=== PATIENT | male | born 1945 | race Hispanic/Latino ===

== ENCOUNTER 2024-09-15 16:47 | Emergency (ER) | payer OTHER ==
[~2024-09-15] VITALS: Ht 182.9 cm; Wt 84.4 kg
[~2024-09-15 16:47] MED LIST: ATEN100T PO; CALCIPOTRIENE TP; CHOL400T4 PO; FLUO15CR2 TP; HUM10VIA6 SQ; HYDR-4060 PO; HYDR-4457 PO; LISI20TA24 PO; METR-172 PO; SULF1TAB42 PO; triamcinolone 0.1% TP
[2024-09-15 16:50] VITALS: TEMP 97.9
[2024-09-15 17:43] LABS: BASOPHILS # (AUTO) 0.04 K/uL (0.00-0.20); BASOPHILS % (AUTO) 0.6 % (0.0-5.0); EOSINOPHILS # (AUTO) 0.25 K/uL (0.00-0.70); EOSINOPHILS % (AUTO) 3.5 % (0.0-8.0); HEMATOCRIT 40.1 % (42-54); IMMATURE GRANULOCYTE ABSOLUTE 0.01 K/uL (0-1); LYMPHOCYTES # (AUTO) 1.5 K/uL (1.0-4.8); LYMPHOCYTES % (AUTO) 21.3 % (21.0-51.0); MEAN CORPUSCULAR HEMOGLOBIN 28.4 pg (27.0-33.0); MEAN CORPUSCULAR HGB CONC 33.7 g/dL (32.0-36.0); MEAN CORPUSCULAR VOLUME 84.4 fL (79-99); MONOCYTES # (AUTO) 0.5 K/uL (0.1-1.0); MONOCYTES % (AUTO) 7.5 % (3.0-13.0); NEUTROPHILS # (AUTO) 4.8 K/uL (1.8-7.7); PLATELET COUNT (AUTO) 195 K/uL (130-400); RED BLOOD CELL COUNT(AUTO) 4.75 MIL/uL (4.50-6.20); RED CELL DISTRIBUTION WIDTH 14.9 % (11.0-15.5); WHITE BLOOD COUNT (AUTO) 7.2 K/uL (4.8-10.8)
[2024-09-15 17:51] LABS: CREATININE 0.9 mg/dL (0.5-1.3); POTASSIUM 4.4 mmol/L (3.5-5.1)
--- NOTE | 2024-09-15 18:12 | HMCIMG ---
ULTRASOUND VENOUS DOPPLER RIGHT LOWER EXTREMITY INDICATION: Pain and swelling. TECHNIQUE: Routine grayscale and color Doppler ultrasound of the right lower extremity veins performed. COMPARISON: None. FINDINGS: The demonstrated veins of the right lower extremity including the common femoral vein, femoral vein, and popliteal vein are associated with normal compressibility, augmentation, and flow. Normal respiratory variation was identified. No evidence for echogenic intraluminal thrombus. IMPRESSION: No evidence for deep venous thrombosis.
[2024-09-15] MEDS ORDERED: SULF1TAB42 PO (18:29)
--- NOTE | 2024-09-15 18:30 | ERN ---
ED Note History of Present Illness Stated Complaint: RLE SWELLING Chief Complaint: Lower Extremity Pain/Injury Time Seen by MD: 17:10 Time Seen by Midlevel: 17:15 Dictation: 79-year-old [facility] to the right lower extrem ity. Patient states he has been having swelling for the last week. Denies having any trauma. However states when he has done his rehab exercises feels like he might have overdone it Allergies: Coded Allergies: amoxicillin (Unverified Allergy, Unknown, 02/02/17) cephalexin (Unverified Allergy, Unknown, 01/12/17) doxycycline (Unverified Allergy, Unknown, 02/02/17) latex (Unverified Allergy, Unknown, RASH, ITCHING, 01/12/17) metformin (Unverified Allergy, Unknown, 02/02/17) Home Meds Active Scripts Sulfamethoxazole/Trimethoprim (Bactrim Ds Tablet) 800 Mg-160 Mg Tablet, 1 TAB PO BID for 10 Days, #20 TAB 0 Refills Prov:CLEMENT BENAVIDES NP 09/15/24 Metronidazole (Metronidazole) 500 Mg Tablet, 500 MG PO BID, #15 TAB Prov:ALBIN DRAKE MD 02/03/17 Sulfamethoxazole/Trimethoprim (Bactrim Ds Tablet) 1 Each Tablet, 1 TAB PO BID, #14 TAB Prov:ALBIN DRAKE MD 02/03/17 Hydrocodone/Acetaminophen ([place] 5-325 Tablet) 1 Each Tablet, 1-2 EACH PO Q6H for pain, #90 TAB Prov:ALBIN DRAKE MD 01/15/17 Reported Medications [calcipotriene 0.05%] No Conflict Check, 1 APPL TP BID 02/02/17 Fluocinonide/Emollient Base (Fluocinonide-E 0.05% Cream) 15 Gm Cream..g., 7 APPL TP AM 02/02/17 [triamcinolone 0.1%] No Conflict Check, 1 APPL TP AM 02/02/17 Cholecalciferol (Vitamin D3) (Vitamin D3) 400 Unit Tablet, 400 UNIT PO BID, TAB 02/02/17 Hydrocodone/Acetaminophen (Hydrocodon-Acetaminophen 5-325) 1 Each Tablet, 2 EACH PO [id number] PRN for PAIN LEVEL 5 TO 10, TAB 02/02/17 Hum Insulin NPH/Reg Insulin Hm (Novolin 70-30 100 Unit/ml Vial) 100 Unit/1 Ml Vial, 17 UNITS SQ HS, VIAL 01/12/17 Hum Insulin NPH/Reg Insulin Hm (Novolin 70-30 100 Unit/ml Vial) 100 Unit/1 Ml Vial, 36 UNITS SQ DAILY, VIAL 01/12/17 Lisinopril (Lisinopril) 20 Mg Tablet, 20 MG PO DAILY, TAB 01/12/17 Atenolol (Atenolol) 100 Mg Tablet, 100 MG PO DAILY, TAB 01/12/17 Past Medical History Past Medical History: DVT, Hypertension Surgical History: Other Surgical History Other: RT KNEE Review of System Dictation Constitutional: Negative for fever,chills, and weight loss Eyes: Negative for injury, pain,redness, and discharge ENT: Negative for injury,pain or swelling Cardiovascular: Negative for chest pain, palpitations, and edema Respiratory: Negative for shortness of breath, cough, and wheezing, Abdomen/GI: Negative for abdominal pain, nausea, vomiting, diarrhea, and constipation Back: Negative for injury and pain : Negative for injury, bleeding and discharge MS/Extremity: Negative for injury and deformity, right lower leg swelling Skin: Negative for rash, and discoloration Neuro: Negative for headache, weakness, numbness, tingling, and seizure Psych: Negative for suicide ideation, homicidal ideation, and hallucinations Review of Systems: was completed Initial Vital Sign VS Vital Signs Date Time Temp Pulse Resp B/P (MAP) Pulse Ox O2 Delivery O2 Flow Rate FiO2 09/15/24 16:50 97.9 73 16 130/79 95 Room Air 0 09/15/24 18:39 21 Physical Exam Dictation General: awake, alert, NAD Head/Face: Normocephalic, atraumatic Eyes: PERRL, EOMI, vision at baseline ENT: oral cavity clear, TMs clear, no signs of infection Neck: Trachea midline, supple, no nuchal rigidity Cardiovascular: RRR, normal S1/S2, No MRGs, no JVD Respiratory: CTAB, no respiratory distress, No rales or wheezes Abdomen: Soft, non-tender, non-distended, normal bowel sounds, no guarding or rebound. Skin: Warm, dry, normal turgor, no rash MS/Extremity: Pulses equal, no cyanosis, neurovascular intact, FROM, right lower leg swelling, mild erythema, mildly warm to touch. Neuro: COAx4, GCS 15, strength 5/5, CN 2-12 intact, normal cerebellar exam, normal gait, Psych: Normal behavior, mood, and affect normal Results (Laboratory/Radiology) Laboratory/Radiology Laboratory Tests Test 09/15/24 17:33 White Blood Count 7.2 K/uL (4.8-10.8) Red Blood Count 4.75 MIL/uL (4.50-6.20) Hemoglobin 13.5 g/dL (14.0-18.0) L Hematocrit 40.1 % (42-54) L Mean Corpuscular Volume 84.4 fL (79-99) Mean Corpuscular Hemoglobin 28.4 pg (27.0-33.0) Mean Corpuscular Hemoglobin Concent 33.7 g/dL (32.0-36.0) Red Cell Distribution Width 14.9 % (11.0-15.5) Platelet Count 195 K/uL (130-400) Mean Platelet Volume 11.7 fL (7.5-10.5) H Immature Granulocyte % (Auto) 0.1 % (0-1) Neutrophils (%) (Auto) 67.0 % (40.0-77.0) Lymphocytes (%) (Auto) 21.3 % (21.0-51.0) Monocytes (%) (Auto) 7.5 % (3.0-13.0) Eosinophils (%) (Auto) 3.5 % (0.0-8.0) Basophils (%) (Auto) 0.6 % (0.0-5.0) Neutrophils # (Auto) 4.8 K/uL (1.8-7.7) Lymphocytes # (Auto) 1.5 K/uL (1.0-4.8) Monocytes # (Auto) 0.5 K/uL (0.1-1.0) Eosinophils # (Auto) 0.25 K/uL (0.00-0.70) Basophils # (Auto) 0.04 K/uL (0.00-0.20) Absolute Immature Granulocyte (auto 0.01 K/uL (0-1) Nucleated Red Blood Cells 0.0 % (0.0-0.19) Sodium Level 140 mmol/L (136-145) Potassium Level 4.4 mmol/L (3.5-5.1) Chloride Level 103 mmol/L (101-111) Carbon Dioxide Level 31 mmol/L (21-32) Blood Urea Nitrogen 18 mg/dL (7-18) Creatinine 0.9 mg/dL (0.5-1.3) Glomerular Filtration Rate Calc 88 mL/min (>90) Random Glucose 86 mg/dL (70-105) Lactic Acid Level 1.0 mmol/L (0.8-2.5) Total Calcium 9.4 mg/dL (8.5-10.1) Labs Reviewed?: Yes ED Course ED Course Orders Procedure Category Date Status Time Cbc With Differential LAB 09/15/24 Complete 17:20 Basic Metabolic Panel LAB 09/15/24 Complete 17:20 Lactic Acid LAB 09/15/24 Complete 17:20 Us Venous Doppler US 09/15/24 Resulted Unilateral 17:20 Vital Signs Date Time Temp Pulse Resp B/P (MAP) Pulse Ox O2 Delivery O2 Flow Rate FiO2 09/15/24 18:39 79 17 144/85 99 Room Air* 0 21 09/15/24 16:50 97.9 73 16 130/79 95 Room Air 0 Medical Decision Making MDM MDM: 79-year-old male sent from the [place] to rule out a clot to the right lower extremity. Patient states he has been having swelling for the last week. Denies having any trauma. However states when he has done his rehab exercises feels like he might have overdone it. Blood work unremarkable. No leukocytosis, no anemia, no thrombocytopenia. Chemistry shows no electrolyte abnormality. Lactic is normal. Preliminary report of ultrasound shows no DVT. Based on my clinical findings and we will discharge patient with antibiotics treat this is cellulitis. Differential diagnosis: Cellulitis, DVT Rationale: Tests considered and ordered secondary to shared decision making include: Previous outside records reviewed: Old ER visits. Risk of complication and/or morbidity or mortality of patient management: None Medications-Per medication reconciliation Need for hospitalization: Patient does not meet criteria for hospitalization. Need for emergency major/minor surgery: No There are no social concerns with this patient. Prescription drug management Prescriptions will include symptomatic care Patient's prior external medical records from other ER visits were reviewed by me as indicated. Prior testing and results from previous visits were reviewed. Prior tests were taken into account with medical decision making and resource utilization, independent historian/historians were used to obtain complete medical history. I independently interpreted the test that were performed, results were reviewed by me and considered findings on radiology if ordered. Medical management and examination interpretation discussions were had by me with other qualified healthcare professionals as indicated for the patient's care. DX & DISP Disposition: Discharge Departure Impression: Primary Impression: Cellulitis Condition: Stable Scripts Sulfamethoxazole/Trimethoprim (Bactrim Ds Tablet) 800 Mg-160 Mg Tablet 1 TAB PO BID for 10 Days, #20 TAB 0 Refills Prov: CLEMENT BENAVIDES NP 09/15/24 Additional Instructions: Take antibiotics as prescribed. Follow up with your PCP in 1-2 days. Return to the hospital if you have worsening symptoms. Referrals: MINERVA JACKSON (PCP) Time of Disposition: 18:29 I have reviewed the case, and I agree with, Diagnosis and Plan I performed a substantive portion of the visit. I have reviewed and personally made and approve the management plan that is documented in the notes by myself with CAESAR/resident. I acknowledged full responsibility for the patient's management plan. CLEMENT BENAVIDES NP Sep 15, 2024 18:[address] DO Sep 18, 2024 04:02
[2024-09-15 18:39] VITALS: BP 144/85; PULSE 79; RESP 17; O2SAT 99
== END 2024-09-15 18:58 | disposition home or self-care (01) ==
LOC: EDH 16:47
DX: L03.115 Cellulitis of right lower limb (principal); M79.661 Pain in right lower leg; I10 Essential (primary) hypertension; Z79.899 Other long term (current) drug therapy; Z86.718 Personal history of other venous thrombosis and embolism; Z88.0 Allergy status to penicillin; Z88.1 Allergy status to other antibiotic agents
CPT/HCPCS: 36415; 80048; 83605; 85025; 93971; 99284

== ENCOUNTER 2024-09-27 09:40 | Emergency (ER) | payer OTHER, MEDICARE ==
[~2024-09-27] VITALS: Ht 182.9 cm; Wt 82.6 kg
--- NOTE | 2024-09-27 09:55 | ERN ---
General Chief Complaint: Lower Extremity Pain/Injury Stated Complaint: FOOT SWELLING Time Seen by : 09:44 Source: patient History of Present Illness Initial Comments Patient is a 79-year-old male coming in complaining of right lower extremity swelling and discomfort. Per patient he has been evaluated in the past. He states that last month on the he was evaluated here with the ultrasound laboratory workup he was diagnosed with a cellulitis. Antibiotics we provided but he states he could not take the antibiotics and believes he might be allergic to them. Patient [facility] given he states he could not finish him because it is getting started hurting. Allergies: Coded Allergies: amoxicillin (Unverified Allergy, Unknown, 02/02/17) cephalexin (Unverified Allergy, Unknown, 01/12/17) doxycycline (Unverified Allergy, Unknown, 02/02/17) latex (Unverified Allergy, Unknown, RASH, ITCHING, 01/12/17) metformin (Unverified Allergy, Unknown, 02/02/17) Home Meds Active Scripts Sulfamethoxazole/Trimethoprim (Bactrim Ds Tablet) 800 Mg-160 Mg Tablet, 1 TAB PO BID for 10 Days, #20 TAB 0 Refills Prov:CLEMENT BENAVIDES OPENING MACHINE CLEANER 09/15/24 Metronidazole (Metronidazole) 500 Mg Tablet, 500 MG PO BID, #15 TAB Prov:ALBIN DRAKE MD 02/03/17 Sulfamethoxazole/Trimethoprim (Bactrim Ds Tablet) 1 Each Tablet, 1 TAB PO BID, #14 TAB Prov:ALBIN DRAKE MD 02/03/17 Hydrocodone/Acetaminophen ([place] 5-325 Tablet) 1 Each Tablet, 1-2 EACH PO Q6H for pain, #90 TAB Prov:ALBIN DRAKE MD 01/15/17 Reported Medications [calcipotriene 0.05%] No Conflict Check, 1 APPL TP BID 02/02/17 Fluocinonide/Emollient Base (Fluocinonide-E 0.05% Cream) 15 Gm Cream..g., 7 APPL TP AM 02/02/17 [triamcinolone 0.1%] No Conflict Check, 1 APPL TP AM 02/02/17 Cholecalciferol (Vitamin D3) (Vitamin D3) 400 Unit Tablet, 400 UNIT PO BID, TAB 02/02/17 Hydrocodone/Acetaminophen (Hydrocodon-Acetaminophen 5-325) 1 Each Tablet, 2 EACH PO [id number] PRN for PAIN LEVEL 5 TO 10, TAB 02/02/17 Hum Insulin NPH/Reg Insulin Hm (Novolin 70-30 100 Unit/ml Vial) 100 Unit/1 Ml Vial, 17 UNITS SQ HS, VIAL 01/12/17 Hum Insulin NPH/Reg Insulin Hm (Novolin 70-30 100 Unit/ml Vial) 100 Unit/1 Ml Vial, 36 UNITS SQ DAILY, VIAL 01/12/17 Lisinopril (Lisinopril) 20 Mg Tablet, 20 MG PO DAILY, TAB 01/12/17 Atenolol (Atenolol) 100 Mg Tablet, 100 MG PO DAILY, TAB 01/12/17 Past Medical History Past Medical History: Diabetes-Type II, Hypertension Medical History Other: PSORIASIS Past Surgical History: Other Surgical History Other: RT KNEE, CATARACTS SX ROS Dictation CONSTITUTIONAL: No chills, no fever, no weakness, no diaphoresis, no malaise. HEAD/FACE: No signs of trauma. EENT: No eye pain, no blurred vision, no tearing, no double vision, no ear pain, no ear discharge, no nose pain, no nasal congestion, no throat pain, no throat swelling, no mouth pain. RESPIRATORY: No cough, no orthopnea, no SOB, no stridor, no wheezing. CARDIOVASCULAR: No chest pain, no edema, no palpitations, no syncope. GASTROINTESTINAL/ABDOMINAL: No abdominal pain, no constipation, no diarrhea, no nausea, no vomiting. GENITOURINARY: No abnormal discharge, no dysuria, no frequent urination, no hematuria. No complaints of pain in the genitals. MUSCULOSKELETAL: No back pain, no gout, no joint pain, no joint swelling, muscle pain, no muscle stiffness, no neck pain. INTEGUMENTARY: No change in color, no change in hair/nails, no dryness, no lesion, no lumps, no rash. NEUROLOGICAL/PSYCH: No anxiety, not depressed, no emotional problem, no headache, no numbness, no pre-existing deficit, no history of seizures, no tremors, no weakness. HEMATOLOGIC/LYMPHATIC: Not anemic, no history of blood clots, no apparent bleeding, no bruising, glands not swollen. All Systems Negative, Except as Noted. Physical Exam Physical Exam Dictation VITAL SIGNS: Reviewed. GENERAL APPEARANCE: Alert, oriented x3, no acute distress, obese. HEAD AND FACE: Non-traumatic. EYES: PERRL, pink conjunctivas, eyelid no trauma, anterior chamber clear. EARS: Pinnas intact and no signs of trauma or erythema. Ear canals clear and no discharge. TMs no erythema. NOSE: No discharge, no bleeding. OROPHARYNX: Mouth normal, teeth no caries, tongue pink. Pharynx clear, no erythema. Tonsils no exudates, no abscesses noted. Mucous membrane moist. NECK: Supple, non-tender, no thyromegaly, no masses, no JVD, no bruits. BREAST: Deferred. CHEST: No tenderness, no crepitus, no paradoxical movement, no retractions. LUNGS: Clear, well-ventilated, symmetric, no rales, no wheezing, no rhonchi, no stridor, good breath sounds bilaterally. HEART: Regular rate, regular rhythm, no murmur, no gallops. VASCULAR: No peripheral edema. ABDOMEN: Soft, positive bowel sounds, nondistended, no guarding, nontender, no rebound, no masses no hepatomegaly, no splenomegaly, no Quiroz's sign, no hernias. RECTAL: Deferred. GENITAL: Deferred. NEUROLOGICAL: Normal speech, gross motor function intact, gross sensory function intact. MUSCULOSKELETAL: Neck nontender, full range of motion, back nontender, full range of motion. EXTREMITIES: Nontender, full range of motion. SKIN: Color erythema, dry, no turgor, rash,edematous red to pink papules on left lower extremity LYMPHATICS: Deferred. Results Laboratory and Microbiology Lab and Micro Result Laboratory Tests Test 09/27/24 10:00 White Blood Count 9.3 K/uL (4.8-10.8) Red Blood Count 4.50 MIL/uL (4.50-6.20) Hemoglobin 12.7 g/dL (14.0-18.0) L Hematocrit 38.5 % (42-54) L Mean Corpuscular Volume 85.6 fL (79-99) Mean Corpuscular Hemoglobin 28.2 pg (27.0-33.0) Mean Corpuscular Hemoglobin Concent 33.0 g/dL (32.0-36.0) Red Cell Distribution Width 14.4 % (11.0-15.5) Platelet Count 277 K/uL (130-400) Mean Platelet Volume 11.6 fL (7.5-10.5) H Immature Granulocyte % (Auto) 0.3 % (0-1) Neutrophils (%) (Auto) 74.0 % (40.0-77.0) Lymphocytes (%) (Auto) 14.7 % (21.0-51.0) L Monocytes (%) (Auto) 6.7 % (3.0-13.0) Eosinophils (%) (Auto) 4.0 % (0.0-8.0) Basophils (%) (Auto) 0.3 % (0.0-5.0) Neutrophils # (Auto) 6.9 K/uL (1.8-7.7) Lymphocytes # (Auto) 1.4 K/uL (1.0-4.8) Monocytes # (Auto) 0.6 K/uL (0.1-1.0) Eosinophils # (Auto) 0.37 K/uL (0.00-0.70) Basophils # (Auto) 0.03 K/uL (0.00-0.20) Absolute Immature Granulocyte (auto 0.03 K/uL (0-1) Nucleated Red Blood Cells 0.0 % (0.0-0.19) Sodium Level 138 mmol/L (136-145) Potassium Level 4.1 mmol/L (3.5-5.1) Chloride Level 102 mmol/L (101-111) Carbon Dioxide Level 27 mmol/L (21-32) Blood Urea Nitrogen 26 mg/dL (7-18) H Creatinine 1.1 mg/dL (0.5-1.3) Glomerular Filtration Rate Calc 69 mL/min (>90) Random Glucose 153 mg/dL (70-105) H Total Calcium 9.2 mg/dL (8.5-10.1) Labs Reviewed?: Yes MDM MDM: Differential diagnosis: Insect bite, cellulitis, history of psoriasis, Rationale: Tests considered and ordered secondary to shared decision making include: Previous outside records reviewed: Old ER visits. Risk of complication and/or morbidity or mortality of patient management: None Medications-Per medication reconciliation Need for hospitalization: Patient does not meet criteria for hospitalization. Need for emergency major/minor surgery: No Patient is a 79-year-old male coming in complaining of right lower extremity erythema. Patient states that this has been ongoing for a month. [facility] and he states he could not finishing because he believes they were affecting his kidney function. Laboratory workup today was within normal limits. Patient will be discharged in stable condition with a diagnosis of insect bites cellulitis. ED Course Orders Procedure Category Date Status Time Cbc With Differential LAB 09/27/24 Complete 09:50 Basic Metabolic Panel LAB 09/27/24 Complete 09:50 Urinalysis LAB 09/27/24 Logged W/Microscopic 09:50 Vital Signs Date Time Temp Pulse Resp B/P (MAP) Pulse Ox O2 Delivery O2 Flow Rate FiO2 09/27/24 09:42 97.5 74 18 115/63 99 Room Air 0 DX & DISP Disposition: Discharge Departure Impression: Primary Impression: Cellulitis Additional Impression: Insect bite Condition: Stable Scripts Hydrocortisone (Hydrocortisone) 1 % Cream..g. 1 APPL TP BID for 7 Days, #30 GM 0 Refills apply to affected area(s) Prov: COLTON SÁNCHEZ MD 09/27/24 Loratadine (Loratadine) 10 Mg Tablet 1 TAB PO DAILY for allergy symptoms for 30 Days, #30 TAB 0 Refills Prov: COLTON SÁNCHEZ MD 09/27/24 Clindamycin HCl (Clindamycin HCl) 300 Mg Capsule 1 CAP PO TID for 7 Days, #21 CAP 0 Refills Prov: COLTON SÁNCHEZ MD 09/27/24 Additional Instructions: FOLLOW-UP WITH PRIMARY CARE PROVIDER IN 1 TO 2 DAYS. TAKE MEDICATIONS DIRECTED HERE IN THE EMERGENCY ROOM. OKAY TO CONTINUE HOME MEDICATIONS UNLESS OTHERWISE DISCUSSED DURING YOUR VISIT IN THE EMERGENCY ROOM TODAY. RETURN TO YOUR NEAREST EMERGENCY ROOM IF SYMPTOMS WORSEN OR IF THERE IS NO IMPROVEMENT. CALL 911 IF YOU NEED IMMEDIATE ASSISTANCE. TAKE TYLENOL [id number] NE EDED AND IF NO CONTRAINDICATIONS ARE PRESENT. INCREASE ORAL HYDRATION. A WOUND CULTURE OR URINE CULTURE WAS ORDERED HERE IN THE EMERGENCY ROOM DEPARTMENT PLEASE FOLLOW-UP WITH PRIMARY CARE PROVIDER AND ADVISE THEM TO GET REPORTS FROM OUR FACILITY. IF YOU HAD ANY CLYDE WRAP/SPLINTS THAT WERE APPLIED HERE, PLEASE DO NOT REMOVE THEM UNTIL YOU SEE YOUR PRIMARY CARE OR SPECIALTY. Referrals: Referrals: MINERVA JACKSON (PCP) ROBERT STAFFORD MD Time of Disposition: 11:15 COLTON SÁNCHEZ MD Sep 27, 2024 09:54
[2024-09-27 10:14] LABS: IMMATURE GRANULOCYTE ABSOLUTE 0.03 K/uL (0-1); NUCLEATED RED BLOOD CELLS 0.0 % (0.0-0.19); PLATELET COUNT (AUTO) 277 K/uL (130-400); RED BLOOD CELL COUNT(AUTO) 4.50 MIL/uL (4.50-6.20); RED CELL DISTRIBUTION WIDTH 14.4 % (11.0-15.5); WHITE BLOOD COUNT (AUTO) 9.3 K/uL (4.8-10.8)
[2024-09-27 10:25] LABS: CREATININE 1.1 mg/dL (0.5-1.3); GLOMERULAR FILTR. RATE CALC 69.0 mL/min (>90); GLUCOSE,RANDOM 153.0 mg/dL (70-105); SODIUM SERUM 138.0 mmol/L (136-145); UREA NITROGEN, BLOOD 26.0 mg/dL (7-18)
[2024-09-27] MEDS ORDERED: CLIN-141 PO (11:16)
[2024-09-27 11:22] VITALS: BP 118/65; PULSE 72; RESP 18; TEMP 97.9; O2SAT 99
[2024-09-27] MEDS ORDERED: HYDR453. TP (11:23)
[2024-09-27] MEDS ORDERED: LORA10TA7 PO (11:23)
== END 2024-09-27 11:32 | disposition home or self-care (01) ==
LOC: EDH 09:40
DX: S80.861A Insect bite (nonvenomous), right lower leg, initial encounter (principal); L03.115 Cellulitis of right lower limb; E11.9 Type 2 diabetes mellitus without complications; I10 Essential (primary) hypertension; Z79.4 Long term (current) use of insulin; Z79.899 Other long term (current) drug therapy; Z88.0 Allergy status to penicillin; Z88.1 Allergy status to other antibiotic agents; W57.XXXA Bitten or stung by nonvenomous insect and other nonvenomous arthropods, initial encounter
CPT/HCPCS: 36415; 80048; 85025; 99283